=== PATIENT | male | born 1950 | race Caucasian/White ===

== ENCOUNTER 2019-03-02 20:49 | Inpatient (IN) ==
--- NOTE | 2019-03-02 21:47 | DI ---
Exam: Single view of the chest. Comparison: None available. Reason for exam: Short of breath. FINDINGS: Patchy airspace opacities are seen in the lung bases. No pneumothorax, pleural effusion, or focal consolidation. Impression: Mild basilar atelectasis/pneumonia.
--- NOTE | 2019-03-02 21:51 | CT ---
EXAM: CT head without contrast. HISTORY: Presyncope. PROCEDURE: Contiguous axial CT images of the head without contrast with coronal and sagittal reforma ts. FINDINGS: There is diffuse cerebral atrophy. The ventricles and basal cisterns are normal in size an d configuration. No evidence of mass or midline shift. No intracranial hemorrhage or evidence of la rge vessel infarct. No extra-axial fluid collection. There are chronic small vessel ischemic change s in the white matter. The paranasal sinuses and right mastoid air cells are normal in appearance. There is partial opacification of the left mastoid air cells. Impression: No intracranial hemorrhage or evidence of large vessel infarct. Chronic small vessel ischemic changes. Diffuse cerebral atrophy. Left mastoiditis.
--- NOTE | 2019-03-02 21:54 | ED.PDOC ---
General ED Provider: Dr. STARLA RUIZ MD Chief Complaint: Dizziness Stated Complaint: The patient presented to the ER with a 2 day history of worsening shortness of breath. He denies any chest pain. He also complains of some pre-syncope and dizziness. No syncope. Denies any GI upset or diaphoresis. No fever or chills. No chemo nose or congestion. He does complain of cough. states his legs are swollen. The patient has a history of COPD and CHF. Time Seen by Physician: 21:00 Mode of Arrival: Walk-In Information Source: Patient Exam Limitations: No limitations Nursing and Triage Documentation Reviewed and Agree: Yes Does patient meet sepsis criteria?: No System Inflammatory Response Syndrome: Not Applicable Sepsis Protocol: For patient's 13 years and over: Temp is 96.8 and below OR 101 and greater Pulse >90 BPM Resp >20/minute Acutely Altered Mental Status Are patient's symptoms suggestive of a new infection, such as: -Pneumonia -Skin, Soft Tissue -Endocarditis -UTI -Bone, Joint Infection -Implantable Device -Acute Abdominal Infection -Wound Infection -Meningitis -Blood Stream Catheter Infection -Unknown Respiratory Complaint Exam Shortness of Air Complaint/Exam Symptoms Are: Still present Timing: Constant Initial Severity: Moderate Current Severity: Moderate Character: Reports Dyspnea at rest and Dyspnea on exertion Aggravating: Reports None Alleviating: Reports None Associated Signs and Symptoms: Reports Cough, Dizziness and Edema; Denies Wheezing, Chest pain with cough, Chest pain, Fever, Chills, Diaphoresis, Nasal congestion, Calf pain, Calf swelling, Rapid breathing, Labored breathing and Decreased intake Related History: Reports Similar episode History of Healthcare-Acquired Pneumonia: No Pulmonary Embolism Risk Factors: Reports Recent travel and DVT Differential Diagnoses: CHF, Pulmonary Edema, COPD Exacerbation, [place], Pneumonia, Pulmonary Embolism and URI Review of Systems Review Of Systems Constitutional: Reports No symptoms Eyes: Reports No symptoms Ears, Nose, Mouth, Throat: Reports No symptoms Respiratory: Reports No symptoms Cardiac: Reports No symptoms GI: Reports No symptoms : Reports No symptoms Musculoskeletal: Reports No symptoms Skin: Reports No symptoms Neurological: Reports No symptoms Endocrine: Reports No symptoms Hematologic/Lymphatic: Reports No symptoms All Other Systems: Reviewed and Negative Physical Exam Physical Exam Appearance: Well-appearing, No pain distress and Well-nourished Ill-appearing: None Pain Distress: None Eyes: ZEE, EOMI and Conjunctiva clear ENT: Ears normal, Nose normal and Oropharynx normal Neck: Supple Respiratory: Airway patent, Breath sounds clear, Breath sounds equal and Respirations nonlabored Cardiovascular: RRR, Pulses normal, No rub and No murmur GI/: Soft, Nontender, No masses, Bowel sounds normal and No Organomegaly Musculoskeletal: Normal strength, ROM intact, No edema, No calf tenderness and Edema (2+ symetric pitting edema to the knee) Skin: Warm, Dry and Normal color Neurological: Sensation intact, Motor intact, Reflexes intact, Cranial nerves intact, Alert and Oriented Psychiatric: Affect appropriate and Mood appropriate Re-Evaluation Re-Evaluation Time of Re-Evaluation: 00:00 Status: Improved Vital Signs Stable: Yes Appearance: NAD Lungs: Clear Skin: Warm and Dry Neuro: Alert and Oriented X3 CV: RRR Critical Care Note Critical Care Note Total Time (mins): 0 Comments: D dimer elevated. CT chest showed no PE or consolidation. The patient received a 250ml NS bolus after the CT to flush IV contrast. Work up significant for edema, weight gain and elevated BNP. No mastoid tenderness on exam. Admit for IV lasix diuresis. I discussed the case with Dr Blackwood who graciously agreed to accept the patient to his service. Course Course Hematology/Chemistry: 03/02/19 21:00 03/02/19 21:00 Orders, Labs, Meds: Lab Review 03/02/19 03/02/19 03/02/19 21:00 21:00 21:00 WBC 9.76 RBC 4.88 Hgb 15.9 Hct 47.0 MCV 96.3 H MCH 32.6 H MCHC 33.8 RDW Coeff of Brodie 13.3 Plt Count 279 Immature Gran % (Auto) 0.6 Neut % (Auto) 68.8 Lymph % (Auto) 18.8 Bledsoe % (Auto) 9.1 Eos % (Auto) 2.5 Baso % (Auto) 0.2 Immature Gran # (Auto) 0.1 Neut # (Auto) 6.7 Lymph # (Auto) 1.8 Bledsoe # (Auto) 0.9 Eos # (Auto) 0.2 Baso # (Auto) 0.0 PT 9.5 INR 0.97 APTT 34.6 D-Dimer (Manual) Puncture Site O2 Saturation ABG pH ABG pCO2 ABG pO2 ABG HCO3 ABG Total CO2 ABG Base Excess Yonathan Test FiO2 % Sodium 140.0 Potassium 3.78 Chloride 96.3 L Carbon Dioxide 35.4 H Anion Gap 12.08 BUN 24.3 H Creatinine 1.58 H Estimated GFR (MDRD) 44.00 BUN/Creatinine Ratio 15.37 Glucose 114.0 H Lactic Acid Calcium 9.73 Magnesium 1.92 Total Bilirubin 0.71 AST 25.3 ALT 17.9 Alkaline Phosphatase 82.6 Troponin I 0.038 NT-Pro-B Natriuret Pep 1380.000 H Total Protein 8.15 Albumin 4.46 Globulin 3.69 Albumin/Globulin Ratio 1.20 03/02/19 03/02/19 03/02/19 21:00 21:03 21:30 WBC RBC Hgb Hct MCV MCH MCHC RDW Coeff of Brodie Plt Count Immature Gran % (Auto) Neut % (Auto) Lymph % (Auto) Bledsoe % (Auto) Eos % (Auto) Baso % (Auto) Immature Gran # (Auto) Neut # (Auto) Lymph # (Auto) Bledsoe # (Auto) Eos # (Auto) Baso # (Auto) PT INR APTT D-Dimer (Manual) 991.98 Puncture Site Rb O2 Saturation 96.0 ABG pH 7.411 ABG pCO2 44.1 ABG pO2 81.0 L ABG HCO3 28 H ABG Total CO2 29 H ABG Base Excess 3 H Yonathan Test + FiO2 % 21.0 Sodium Potassium Chloride Carbon Dioxide Anion Gap BUN Creatinine Estimated GFR (MDRD) BUN/Creatinine Ratio Glucose Lactic Acid 1.12 Calcium Magnesium Total Bilirubin AST ALT Alkaline Phosphatase Troponin I NT-Pro-B Natriuret Pep Total Protein Albumin Globulin Albumin/Globulin Ratio Orders Category Date Time Status ADMIT PATIENT INPATIENT .TO [facility] (MONITORED BED) ADMISSION 03/02/19 2 3:57 Ordered ABG DRAW REQUEST Stat CARDIO 03/02/19 21:05 Completed EKG-(ED ONLY) Stat CARDIO 03/02/19 21:03 Completed ACTIVITY .Up ad Lupe CARE 03/02/19 23:57 Ordered CATHETER INSERTION AND CARE Q8HR CARE 03/02/19 23:57 Ordered INTAKE & OUTPUT Q8HR CARE 03/02/19 23:57 Ordered NPO REMINDER: IMAGING ONCE CARE 03/02/19 22:19 Completed REMINDER: Ask MD to d/c garner DAILY CARE 03/03/19 00:00 Ordered TELEMETRY MONITORING TELE CARE 03/03/19 00:02 Ordered VITAL SIGNS Q8HR CARE 03/02/19 23:57 Ordered VTE PREVENTION .SCD 24 Hours CARE 03/02/19 23:57 Ordered CARDIAC DIET DIETARY 03/02/19 Breakfast Ordered ABG Stat LAB 03/02/19 21:03 Completed CBC W/ AUTO DIFF DAILY@0600 LAB 03/03/19 06:00 Ordered CBC W/ AUTO DIFF DAILY@0600 LAB 03/04/19 06:00 Ordered CBC W/ AUTO DIFF Stat LAB 03/02/19 21:00 Completed COMPREHENSIVE METABOLIC PANEL DAILY@0600 LAB 03/03/19 06:00 Ordered COMPREHENSIVE METABOLIC PANEL DAILY@0600 LAB 03/04/19 06:00 Ordered COMPREHENSIVE METABOLIC PANEL Stat LAB 03/02/19 21:00 Completed D-DIMER Stat LAB 03/02/19 21:00 Completed LACTIC ACID Stat LAB 03/02/19 21:30 Completed MAGNESIUM Stat LAB 03/02/19 21:00 Completed NT-PROBNP DAILY@0600 LAB 03/02/19 06:00 Ordered NT-PROBNP Stat LAB 03/02/19 21:00 Completed PARTIAL THROMBOPLASTIN TIME Stat LAB 03/02/19 21:00 Completed PROCALCITONIN Urgent LAB 03/02/19 Ordered PT WITH INR Stat LAB 03/02/19 21:00 Completed TROPONIN I Stat LAB 03/02/19 21:00 Completed URINALYSIS C & S IF INDICATED Stat LAB 03/02/19 21:03 Uncollected Amlodipine Besylate [Norvasc] MEDS 03/03/19 09:00 Ordered 10 mg PO DAILY Carvedilol [Coreg] MEDS 03/03/19 09:00 Ordered 25 mg PO BID Dabigatran Etexilate Mesylate [Pradaxa] MEDS 03/03/19 09:00 Ordered 150 mg PO BID Ergocalciferol (Vitamin D2) [Drisdol] MEDS 03/03/19 09:00 Ordered 50,000 unit PO WEEKLY Furosemide [Lasix] MEDS 03/02/19 23:45 Ordered 40 mg IVP BID Hydrocodone Bit/Acetaminophen [[place] 10-325] MEDS 03/03/19 00:03 Ordered 1 tab PO Q6H PRN Levothyroxine Sodium [Synthroid] MEDS 03/03/19 09:00 Ordered 50 mcg PO DAILY Lisinopril [Zestril] MEDS 03/03/19 09:00 Ordered 40 mg PO DAILY Sodium Chloride 0.9% [Sodium Chloride] 1,000 ml MEDS 03/02/19 23:09 Active IV BOLUS Spironolactone [Aldactone] MEDS 03/03/19 09:00 Ordered 25 mg PO DAILY RESUSCITATION STATUS Routine OTHERS 03/02/19 23:57 Ordered CHEST, 1V AP ONLY Stat RADS 03/02/19 21:[address] CHEST PE PROTOCOL Stat RADS 03/02/19 22:[address] HEAD W/O CONTRAST Stat RADS 03/02/19 21:06 Completed Medications Generic Name Dose Route Start Last Admin Trade Name Freq PRN Reason Stop Dose Admin Furosemide 40 mg 03/02/19 23:45 Lasix IVP BID TAYA Sodium Chloride 1,000 mls @ 1,000 mls/hr 03/02/19 23:09 03/02/19 23:20 Sodium Chloride IV 03/03/19 00:08 1,000 mls/hr BOLUS STA Administration Vital Signs: Temp Pulse Resp BP Pulse Ox 03/02/19 20:52 99 F 64 26 H 190/90 H 98 Discharge Plan Discharge Patient Disposition: ADMITTED INPATIENT Discharge Problem: Acute exacerbation of CHF (congestive heart failure) Qualifiers: Heart failure type: unspecified Qualified Code(s): I50.9 - Heart failure, unspecified ED Provider: STARLA RUIZ Condition: Good
[2019-03-02] MEDS ORDERED: SODIUM CHLORIDE 1,000 ML IV STA (23:09)
--- NOTE | 2019-03-02 23:25 | CT ---
EXAM: CT pulmonary angiogram. HISTORY: Shortness of breath. Elevated D-dimer. PROCEDURE: After the intravenous injection of contrast a CT pulmonary angiogram was performed with c ontiguous axial CT images of the chest with multiplanar reformats, MIP images and 3-D reformats. FINDINGS: There is normal enhancement of the pulmonary arteries with no evidence of pulmonary embolis m. The heart is enlarged. There is aneurysmal dilatation of the ascending aorta which measures 4.3 cm in diameter with no evidence of aneurysm leak. There are coronary artery calcifications. There i s minimal bilateral atelectasis. There are degenerative changes in the spine. Impression: No evidence of pulmonary embolism. Minimal bilateral atelectasis. Aortic aneurysm as described. Atherosclerotic vascular disease. Cardiomegaly.
[2019-03-03] MEDS: LASIX IVP SCH ×3 (00:25→20:28)
[2019-03-03] MEDS: NORCO 10-325 PO PRN ×2 (01:07→09:48)
[2019-03-03 01:35] VITALS: BMI 43.6
[2019-03-03] MEDS: SYNTHROID PO SCH (05:42)
[2019-03-03] MEDS ORDERED: COREG PO SCH (09:00)
[2019-03-03] MEDS ORDERED: ZESTRIL PO SCH (09:00)
[2019-03-03] MEDS ORDERED: NORVASC PO SCH (09:00)
[2019-03-03] MEDS: ANTIVERT PO SCH ×3 (09:47→20:24)
[2019-03-03] MEDS: K-DUR PO SCH ×3 (09:47→17:26)
[2019-03-03] MEDS: ALDACTONE PO SCH (09:47)
[2019-03-03] MEDS: ZOFRAN 4 MG/2 ML IVP PRN ×2 (09:48→15:18)
[2019-03-03] MEDS: PRADAXA PO SCH ×2 (09:49→20:23)
--- NOTE | 2019-03-03 10:10 | PCM.CONS ---
CONSULTING PROVIDER: Dr. HERBERT ROBERTS ATTENDING PROVIDER: Dr. Bethany ALFARO DATE OF SERVICE: 03/03/19 SUBJECTIVE: This 68 year old /WHITE M was hospitalized 03/03/19. The patient was seen on consultation for CHF exacerbation. Still has some dizziness with nausea likely vestibular dysfunction. CT scan of the head and chest don't show any acute findings. REVIEW OF SYSTEMS: CONSTITUTIONAL: No night sweats. No fatigue, malaise, lethargy. No fever or chills. HEENT: Eyes: No visual changes. No eye pain. No eye discharge. ENT: No runny nose. No epistaxis. No sinus pain. No odynophagia. No congestion. RESPIRATORY: No cough, no congestion. No hemoptysis. No shortness of breath. CARDIOVASCULAR: No angina symptoms. No CHF symptoms. No atypical chest pain for CAD. No palpitations. No orthopnea. GASTROINTESTINAL: No abdominal pain. Nausea. No diarrhea or constipation. No hematemesis. No hematochezia. GENITOURINARY: No urgency. No frequency. No dysuria. No hematuria. No obstructive symptoms. No discharge. No pain. No significant abnormal bleeding. MUSCULOSKELETAL: No musculoskeletal pain; no joint swelling. NEUROLOGICAL: Awake, alert, oriented to time, place and person. No headache. No neck pain. No syncope. No seizures. Dizziness. PSYCHIATRIC: Not anxious. No depression. No suicidal thoughts. No homicidal thoughts. SKIN: No rash. No lesions. No wounds. ENDOCRINE: No unexplained weight loss. No weight gain. HEMATOLOGIC/LYMPHATIC: No anemia. No purpura. No petechiae. No prolonged or excessive bleeding. No palpable lymph nodes. PHYSICAL EXAMINATION: GENERAL: The patient is awake, alert and oriented,sitting in bed in no distress. The patient is morbidly obese. VITAL SIGNS: Temperature 98.2 F, Pulse 67, Respiratory Rate 20, BP 148/88, Pulse Ox 95% HEENT: Head normocephalic, atraumatic. Eyes: Extraocular muscles are intact. Pupils are equal, round and reactive to light and accommodation. Ears: No lesions. Nose appeared normal. Throat: No exudate or erythema. NECK: Supple. No JVD, no carotid bruit. No lymphadenopathy or thyromegaly. LUNGS: Decreased breath sounds. Clear to auscultation. Percussion note normal. Chest symmetrical. HEART: S1, S2, no S3. No murmurs. No cyanosis or clubbing. No ascites. Pulses: Dorsalis pedis and posterior tibial pulses +1 to +2 both sides. ABDOMEN: Soft. Non-tender. Bowel sounds active. No CVA tenderness. No mass felt. EXTREMITIES: Both legs has pigmented skin with dermatitis which is stasis dermatitis. Full range of motion of all extremities, equal. NEUROLOGIC: No focal deficit. Cranial nerves II through XII are grossly intact. No headache, no double vision or headache. SKIN: Warm and dry. Intact. Turgor-normal. LYMPHATIC: No palpable lymph nodes/no lymphedema. MUSCULOSKELETAL: Normal joints with no swelling. Muscle tone is normal. LAB REVIEW: 03/03/19 04:57 03/03/19 04:57 03/03/19 04:57: Sodium 139.0, Potassium 3.28 L, Chloride 96.4 L, Carbon Dioxide 36.2 H, Anion Gap 9.68, BUN 24.0 H, Creatinine 1.49 H, Estimated GFR (MDRD) 47.00, BUN/Creatinine Ratio 16.10, Glucose 146.1 H, Calcium 8.95, Total Bilirubin 0.78, AST 19.8, ALT 15.7, Alkaline Phosphatase 65.9, NT-Pro-B Natriuret Pep 1030.000 H, Total Protein 6.74, Albumin 3.78, Globulin 2.96, Albumin/Globulin Ratio 1.27 03/03/19 04:57: WBC 8.20, RBC 4.63 L, Hgb 14.8, Hct 44.2, MCV 95.5 H, MCH 32.0 H , MCHC 33.5, RDW Coeff of Brodie 13.3, Plt Count 258, Immature Gran % (Auto) 0.4, Neut % (Auto) 62.9, Lymph % (Auto) 23.5, Person % (Auto) 10.1 H, Eos % (Auto) 2.7, Baso % (Auto) 0.4, Immature Gran # (Auto) 0.0, Neut # (Auto) 5.2, Lymph # (Auto) 1.9, Person # (Auto) 0.8, Eos # (Auto) 0.2, Baso # (Auto) 0.0 03/03/19 00:40: Urine Color Yellow, Urine Clarity Clear, Urine pH 5.0, Ur Specific Avalon 1.015, Urine Protein Negative, Urine Glucose (UA) Negative, Urine Ketones Negative, Urine Blood Negative, Urine Nitrite Negative, Urine B ilirubin Negative, Urine Urobilinogen 0.2, Ur Leukocyte Esterase Negative 03/03/19 00:15: Hemoglobin A1c 6.19 H 03/03/19 00:15: 25-OH Vitamin D Total 29.4 L 03/03/19 00:15: TSH 4.260 03/02/19 21:30: Lactic Acid 1.12 03/02/19 21:03: Puncture Site Rb, O2 Saturation 96.0, ABG pH 7.411, ABG pCO2 44.1, ABG pO2 81.0 L, ABG HCO3 28 H, ABG Total CO2 29 H, ABG Base Excess 3 H, Yonathan Test +, FiO2 % 21.0 03/02/19 21:00: Procalcitonin < 0.05 03/02/19 21:00: D-Dimer (Manual) 991.98 03/02/19 21:00: Sodium 140.0, Potassium 3.78, Chloride 96.3 L, Carbon Dioxide 35.4 H, Anion Gap 12.08, BUN 24.3 H, Creatinine 1.58 H, Estimated GFR (MDRD) 44.00, BUN/Creatinine Ratio 15.37, Glucose 114.0 H, Calcium 9.73, Magnesium 1.92, Total Bilirubin 0.71, AST 25.3, ALT 17.9, Alkaline Phosphatase 82.6, Troponin I 0.038, NT-Pro-B Natriuret Pep 1380.000 H, Total Protein 8.15, Albumin 4.46, Globulin 3.69, Albumin/Globulin Ratio 1.20 03/02/19 21:00: PT 9.5, INR 0.97, APTT 34.6 03/02/19 21:00: WBC 9.76, RBC 4.88, Hgb 15.9, Hct 47.0, MCV 96.3 H, MCH 32.6 H, MCHC 33.8, RDW Coeff of Brodie 13.3, Plt Count 279, Immature Gran % (Auto) 0.6, Neut % (Auto) 68.8, Lymph % (Auto) 18.8, Person % (Auto) 9.1, Eos % (Auto) 2.5, Baso % (Auto) 0.2, Immature Gran # (Auto) 0.1, Neut # (Auto) 6.7, Lymph # (Auto) 1.8, Person # (Auto) 0.9, Eos # (Auto) 0.2, Baso # (Auto) 0.0 ASSESSMENT: 1. Dizziness with nausea likely vestibular dysfunction 2. History of atrial fibrillation started after right total knee replacement in 2014 3. History of pulmonary embolism Please see below. RECOMMENDATIONS/PLAN: 1. Echo 2. Carotid scan 3. Continue the same medications. Plan and coordination of the patient's care discussed in the presence of Piece Jobber and Nurse. CONDITION: Stable SCRIBED BY: Indy SETHI scribed while in presence of service performed by Dr. HERBERT ROBERTS on 03/03/19 ([id number])
[2019-03-03] MEDS ORDERED: NEXIUM IV IVP STA (14:17)
--- NOTE | 2019-03-03 15:15 | US ---
EXAM: Bilateral carotid artery Doppler History: Dizziness. Technique: Multiple sonographic images through the bilateral internal carotid arteries were obtained . Color duplex Doppler was used to interrogate vascular flow. Findings: The right ICA peak systolic velocity is within normal limits measuring 82 cm/sec. The right ICA/cca PSV ratio is normal at 1.8. The right vertebral artery is patent and demonstrates antegrade flow. G ray scale images demonstrate mild plaque buildup within the right internal carotid artery. The left ICA peak systolic velocity is within normal limits measuring 61 cm/sec. The left ICA/cca PS V ratio is normal at 1.5. The left vertebral artery was not seen. Connell scale images demonstrate mil d plaque buildup within the left internal carotid artery. Impression: 1. No significant hemodynamic stenosis of the bilateral internal carotid arteries. 2. Nonvisualization of the left vertebral artery
[2019-03-03] MEDS: COREG PO SCH (17:26)
[2019-03-04] MEDS: SYNTHROID PO SCH (05:31)
[2019-03-04] MEDS ORDERED: DECADRON 4 MG/ML SDV IM STA (08:10)
[2019-03-04] MEDS ORDERED: ZOFRAN TAB PO PRN (08:25)
[2019-03-04] MEDS: PRADAXA PO SCH ×2 (08:35→20:56)
[2019-03-04] MEDS: COREG PO SCH ×2 (08:36→17:26)
[2019-03-04] MEDS: ANTIVERT PO SCH ×3 (08:36→20:58)
[2019-03-04] MEDS: K-DUR PO SCH ×3 (08:36→17:26)
[2019-03-04] MEDS: ALDACTONE PO SCH (08:36)
[2019-03-04] MEDS: NORVASC PO SCH (08:37)
[2019-03-04] MEDS: ZESTRIL PO SCH (08:37)
--- NOTE | 2019-03-04 09:36 | PN ---
DATE OF SERVICE: 03/03/19 SUBJECTIVE: The patient was doing better and stable. He lost 7 lbs since admission. I did instruct the nurse last night to put the weight as soon as he gets to bed. The patient had echocardiogram done by Dr. Majano and told me that his ejection fraction is preserved. I do not have the written report. The patient's WBC stayed within normal limits. The MCV and MCH remained elevated. The RBC is slightly below normal but hemoglobin is 14.8 down about 1 point from yesterday and hematocrit down to 44 from 47. Potassium slightly lower now 3.58 from 3.78 probably because of the Lasix. He will be given a small amount of potassium supplementation. He is taking Lisinopril as well as Aldactone. C02 is slightly higher 36.2 from 35.4. This patient is encouraged to take deep breaths, three breaths at the time every hour. BUN slightly below from yesterday 24 from 24.3 and creatinine 1.49 from 1.58. EGFR is 47 from 44 yesterday. Blood sugar 146, hemoglobin A1C 6.19, NT-Pro-BNP 1,030 from 1,380. 25-OH Vitamin D is 29.4 ng/ml. TSH 4.260. The skin on the foot is dry. Lungs still have coarse breath sounds. No rales or wheezing otherwise. Heart is audible and slightly irregular. Abdomen protuberant. ASSESSMENT: 1. ACUTE HEART FAILURE SUPERIMPOSED ON CHRONIC. 2. IN SPITE INSULIN LEVEL, I DO THINK THE PATIENT MAY HAVE AN INSULIN RESISTANT SYNDROME. MTDD
--- NOTE | 2019-03-04 11:15 | HP ---
DATE OF SERVICE: 03/03/19 CHIEF COMPLAINT: Shortness of breath and dizziness. SOURCE OF HISTORY: The patient as well as notes from the emergency room. HISTORY OF PRESENT ILLNESS: I did come and see the patient about 12:30 in the morning of 03/03/19. The patient had been driving from [facility][1] coming to [place]. He planned to [place]. He told me from [place] he was going to [place]. He had been experiencing some shortness sometime maybe a month. He goes to the [facility] and he did complain about the fact that he could not see the doctor at the [facility] quickly. He mentioned that there is one doctor for 5,000 patient's. His shortness of breath has worsened in the last two days. Dizziness is not vertigo. The patient had not had a syncopal episode with this dizziness. The patient had a work up at the emergency room plus examination. The patient had CTA chest because of the history of pulmonary emboli and shortness of breath. There is no pulmonary embolism, minimal bilateral atelectasis, aortic aneurysm 4.3cm thoracic, Atherosclerotic vascular disease with vascular calcifications of the coronary arteries and cardiomegaly. Bilateral carotid Doppler studies showed no significant hemodynamic stenosis. Nonvisualization of the left vertebral artery. Head CT showed no intracranial hemorrhage or evidence of large vessel infarct. Chest x-ray shows mild basilar atelectasis or pneumonia not shown on CT. Normal WBC. Normal RBC, hgb and hct in the emergency. Elevated MCV and MCH 96.3 and 32.6 respectively. Plt count normal 279,000 differential is unremarkable. Electrolytes are unremarkable. Chloride 96.3, Co2 35.4, Iron gap normal 12.08. BUN elevated 24.3, creatinine 1.58, EGFR 44. Blood sugar 114. NT PRO BNP 1,380, Troponin normal 0.038, procalcitonin less than 0.05. Urine is unremarkable. Specific gravity 1.015. PT 9.5, INR 0.97, APTT 34.6 normal, D- dimer 991.98, elevated > 500ng/ml. The patient was admitted because of leg edema shortness of breath and elevated PROBNP. PAST MEDICAL HISTORY: The patient had been diagnosis with atrial fibrillation on Pradaxa 150mg twice a day Hypothyroidism Arthritis Vitamin D deficiency Sleep apnea Pulmonary embolism Heart disease/Congestive heart failure Hypertension PAST SURGICAL HISTORY: None FAMILY HISTORY: Mother had hypothyroidism in the past with chronic obstructive lung disease. Father had myocardial infarction plus heart disease Sister was diabetes mellitus Other sister had heart disease SOCIAL HISTORY: The patient is and never did smoke in his life and no alcoholic beverages. MEDICATIONS: Amlodipine 10mg daily Carvedilol 25mg PO twice a day Pradaxa 150mg twice a day Vitamin D 2 50,000 international units weekly Hydrocodone/APAP 10-325 1 tablet Q 6 hours PRN for pain I do not have the strength for that medication Levothyroxine 50mcg PO daily Lisinopril 40mg daily Aldactone 1 tablet daily 25mg ALLERGIES: No known drug allergies. REVIEW OF SYSTEMS: CONSTITUTIONAL: The patient is alert and oriented and answering questions. He has movement of all extremities. Denies any fever, chills, headaches or visual disturbances. 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 Some dizziness but no syncopal episode or seizures. VISUAL: Denies any blurred vision, double vision or transient loss of vision. AUDITORY: Hearing is decreased. Denies any pain or drainage or ringing. RESPIRATORY: The patient has shortness of breath with some cough. No history of hemoptysis. The sensation of the shortness of shortness of breath had been for about a month or more but had worsened in the last two days. CARDIOVASCULAR: Denies any chest pain or chest tightness. He does have some shortness of breath on exertion. No diaphoresis. : The patient denies any dysuria. GI: The patient has some nausea but no anorexia. No vomiting. No abdominal pain or change in bowel habits and no blood in the stool. INTEGUMENT: Denies any rash or pruritus. ENDOCRINE: No polyuria or polydipsia. HEMATOLOGY: No history of prolonged bleeding or spontaneous bleeding. PSYCHIATRIC: Affect appears to be normal. The patient's cooperative. PHYSICAL EXAMINATION: GENERAL: 68 year old male admitted to the hospital because of shortness of breath and cough and bilateral leg edema and weight gain. He has a history of congestive heart failure in the past. HEAD: Unremarkable. Scalp has no active dermatitis. FACE: Symmetrical and equal with no facial weakness and no tenderness to palpation under pressure in the frontal and maxillary sinus areas. EYES: Pupils are equal and reactive to light about 3mm in size. THROAT: Unremarkable. NECK: No masses and no bruit. No rigidity. CHEST: Symmetrical and equal and barrel in shape. LUNGS: Breath sounds are heard in both sides, course but no obvious rales and no wheezing HEART: Audible and slightly irregular and not tachycardiac. No murmur ABDOMEN: Protuberant. Pendulous soft with no significant tenderness. No masses. No bruit. Bowel sounds are active. EXTERNAL GENITALIA: Not examined. RECTAL: No performed. LOWER EXTREMITIES: Bilateral leg edema more or less ankle and foot. The skin is dry and scaly. No pedal pulses. UPPER EXTREMITIES: Symmetrical and equal ASSESSMENT: 1. Heart failure by history undetermined whether reduced ejection fraction or preserve ejection fraction 2. Atrial fibrillation on Pradaxa 3. Hypothyroidism on replacement, Levothyroxine 50mcg 4. Hypertension on Lisinopril and Aldactone 5. Elevated BMI 43.6 6. Vitamin D deficiency by history 7. Peripheral arterial disease 8. Bilateral leg edema probably mixed etiology PLAN: 1. Continue Lasix 40mg intervenously given at the emergency room. I told the nurse to give the medication before being transferred to the floor. 2. Continue all the home medications 3. Refer to Cardiology, Dr. Majano for further evaluation, studies and treatment PROGNOSIS: Guarded TIME SPENT: GREATER THAN 65 MINUTES MTDD
--- NOTE | 2019-03-04 14:16 | ECHO2D ---
Date of Exam: 03/03/19 Ordering Physician: DR. LORY ALFARO Room #: 122 Reason for Echo: ATRIAL FIBRILLATION M-Mode Normal Adult Results LV Dimensions Normal Adult Results AoV Opening excursions >1.6 >1.6 LVEDD-base- 3.5-5.8 5.7 Ao root dimensions 2.0-3.7 3.9 LVESD-base- 3.1-4.6 L. Atrium dimensions 1.9-3.8 6.2 Post. Wall thickness 0.8-1.1 1.6 IV septum (thickness) 0.7-1.2 1.6 Post. Wall excursion 0.72-1.3 0.6 Septal motion 0.6 Systolic motion R. Ventricular cavity 1.5-2.0 NORMAL LVEF 60% 45-50% Paradoxical septal wall motion NORMAL 2-D : MARKEDLY ENLARGED LEFT ATRIAL CAVITY, BORDERLINE LEFT VENTRICLE CAVITY ENLARGEMENT--HYPOKINETIC LEFT VENTRICLE --NORMAL VALVES--NO EFFUSION, NO THROMBUS M-MODE: MV: NORMAL AV: NORMAL TV: NORMAL PV: CHAMBER SIZE: ENLARGED LEFT ATRIAL CAVITY/ BORDERLINE LEFT VENTRICLE CAVITY WALL MOTION: HYPOKINETIC LEFT VENTRICLE PERICARDIUM: NORMAL INTERPRETATION: 1. DIFFICULT STUDY--BODY HABITUS BMI GREATER THAN 50 2. LEFT VENTRICLE HYPERTROPHY (MODERATE) WITH STIFF LEFT VENTRICLE 3. MILDLY HYPOKINETIC LEFT VENTRICLE WITH EJECTION FRACTION 45 TO 50% 4. MARKEDLY ENLARGED LEFT ATRIA CAVITY 5. BORDERLINE LEFT VENTRICLE CAVITY ENLARGEMENT. MTDD
[2019-03-05] MEDS: SYNTHROID PO SCH (06:05)
[2019-03-05] MEDS: ALDACTONE PO SCH (09:02)
[2019-03-05] MEDS: COREG PO SCH ×2 (09:03→17:38)
[2019-03-05] MEDS: ANTIVERT PO SCH ×3 (09:03→20:16)
[2019-03-05] MEDS: NORVASC PO SCH (09:03)
[2019-03-05] MEDS: PRADAXA PO SCH ×2 (09:05→20:21)
[2019-03-05] MEDS: ZESTRIL PO SCH (09:05)
[2019-03-05] MEDS: K-DUR PO SCH ×3 (09:05→17:38)
--- NOTE | 2019-03-05 11:41 | DI ---
EXAM: Chest two views HISTORY: Shortness of breath FINDINGS: Compared to 03/02/2019. Cardiomegaly and atherosclerosis are again noted. No consolidate d pneumonia or definite central vascular congestion. There is no visible pleural fluid or pneumothor ax. IMPRESSION: 1. No acute cardiopulmonary process.
[2019-03-06] MEDS: SYNTHROID PO SCH (05:46)
[2019-03-06] MEDS: PRADAXA PO SCH (09:32)
[2019-03-06] MEDS: ANTIVERT PO SCH ×2 (09:32→14:03)
[2019-03-06] MEDS: NORVASC PO SCH (09:33)
[2019-03-06] MEDS: ZESTRIL PO SCH (09:33)
[2019-03-06] MEDS: COREG PO SCH ×2 (09:33→17:00)
[2019-03-06] MEDS: K-DUR PO SCH ×3 (09:33→17:00)
[2019-03-06] MEDS: ALDACTONE PO SCH (09:33)
[2019-03-06 13:58] VITALS: BP 116/70; TEMP 97.8
--- NOTE | 2019-03-08 08:58 | CONS ---
DATE OF SERVICE: 03/05/19 CONSULT FOLLOWUP SUBJECTIVE: 68 year old white male hospitalized with possibility of CHF. Main problem was dizziness. The patient's dizziness is practically under control. He doesn't have any symptoms of CHF. REVIEW OF SYSTEMS: CONSTITUTIONAL: No night sweats. No fatigue, malaise, lethargy. No fever or chills. HEENT: Eyes: No visual changes. No eye pain. No eye discharge. ENT: No runny nose. No epistaxis. No sinus pain. No sore throat. No odynophagia. No ear pain. No congestion. RESPIRATORY: No cough, no congestion. No hemoptysis. CARDIOVASCULAR: No angina symptoms. No CHF symptoms. No atypical chest pain for CAD. No palpitations. No shortness of breath. GASTROINTESTINAL: No abdominal pain. No nausea or vomiting. No diarrhea or constipation. No hematemesis. No hematochezia. GENITOURINARY: No urgency. No frequency. No dysuria. No hematuria. No obstructive symptoms. No discharge. No pain. No significant abnormal bleeding. MUSCULOSKELETAL: No musculoskeletal pain. No joint swelling. No arthritis. NEUROLOGICAL: No headache. No neck pain. No syncope. No seizures. No dizziness. PSYCHIATRIC: Not anxious. No depression. No suicidal thoughts. No homicidal thoughts. SKIN: No rash. No lesions. No wounds. ENDOCRINE: No unexplained weight loss. No weight gain. HEMATOLOGIC/LYMPHATIC: No anemia. No purpura. No petechiae. No prolonged or excessive bleeding. No palpable lymph nodes. PHYSICAL EXAMINATION: GENERAL: The patient is oriented to time, place and person. VITAL SIGNS: Temperature 98, pulse 70, respiratory rate 15, blood pressure 130/80 and pulse ox 95% on room air. HEENT: Head normocephalic, atraumatic. Eyes: Extraocular muscles are intact. Pupils are equal, round and reactive to light and accommodation. Ears: No lesions. Nose appeared normal. Throat: No exudate or erythema. NECK: Supple. No JVD, no carotid bruit. No lymphadenopathy or thyromegaly. LUNGS: Decreased breath sounds but clear to auscultation. Percussion note normal. Chest symmetrical. HEART: S1, S2, no S3. No murmurs. No cyanosis or clubbing. No ascites. Pulses: Dorsalis pedis and posterior tibial pulses +1 to +2 bilaterally. ABDOMEN: Soft. Nontender. Bowel sounds active. No CVA tenderness. No mass felt. The patient's appetite is excellent. He eats a lot. No nausea. EXTREMITIES: No edema. Full range of motion of all extremities, equal. NEUROLOGIC: No focal deficit. Cranial nerves II through XII are grossly intact. No headache, no double vision or headache. Mild dizziness,persists throughout the day. SKIN: Not dry. Intact. Turgor - normal. LYMPHATIC: No palpable lymph nodes/no lymphedema. MUSCULOSKELETAL: Normal joints with no swelling. Muscle tone is normal. ASSESSMENT: 1. Dizziness seems to be vestibular dysfunction. No evidence of CHF at present time. Carotid scan and CT scan of the head no acute findings or medical findings. The patient is waiting for his to come and pick him up as he is a resident of [place] CONDITION: Stable. [facility]
[2019-03-08] MEDS ORDERED: DRISDOL PO SCH (09:00)
--- NOTE | 2019-03-08 09:08 | CONS ---
DATE OF SERVICE: 03/06/19 CONSULT FOLLOWUP SUBJECTIVE: 68 year old white male hospitalized with dizziness, lightheadedness. There was a possibility of CHF on admission. The patient doesn't have any CHF symptoms. REVIEW OF SYSTEMS: CONSTITUTIONAL: No night sweats. No fatigue, malaise, lethargy. No fever or chills. HEENT: Eyes: No visual changes. No eye pain. No eye discharge. ENT: No runny nose. No epistaxis. No sinus pain. No sore throat. No odynophagia. No ear pain. No congestion. RESPIRATORY: No cough, no congestion. No hemoptysis. CARDIOVASCULAR: No angina symptoms. No CHF symptoms. No atypical chest pain for CAD. No palpitations. No shortness of breath. GASTROINTESTINAL: No abdominal pain. No nausea or vomiting. No diarrhea or constipation. No hematemesis. No hematochezia. Appetite is good. GENITOURINARY: No urgency. No frequency. No dysuria. No hematuria. No obstructive symptoms. No discharge. No pain. No significant abnormal bleeding. MUSCULOSKELETAL: No musculoskeletal pain. No joint swelling. No arthritis. NEUROLOGICAL: No headache. No neck pain. No syncope. No seizures. Mild dizziness more with the head movement. PSYCHIATRIC: Not anxious. No depression. No suicidal thoughts. No homicidal thoughts. SKIN: No rash. No lesions. No wounds. ENDOCRINE: No unexplained weight loss. No weight gain. HEMATOLOGIC/LYMPHATIC: No anemia. No purpura. No petechiae. No prolonged or excessive bleeding. No palpable lymph nodes. PHYSICAL EXAMINATION: VITAL SIGNS: Temperature 98.6, pulse 60, respiratory rate 20, blood pressure 124/72 and pulse ox 95%. HEENT: Head normocephalic, atraumatic. Eyes: Extraocular muscles are intact. Pupils are equal, round and reactive to light and accommodation. Ears: No lesions. Nose appeared normal. Throat: No exudate or erythema. NECK: Supple. No JVD, no carotid bruit. No lymphadenopathy or thyromegaly. LUNGS: Decreased breath sounds. Clear to auscultation. Percussion note normal. Chest symmetrical. HEART: S1, S2, no S3. No murmurs. No cyanosis or clubbing. No ascites. Pulses: Dorsalis pedis and posterior tibial pulses +2 bilaterally. ABDOMEN: Soft. Nontender. Bowel sounds active. No CVA tenderness. No mass felt. EXTREMITIES: No edema. Full range of motion of all extremities, equal. NEUROLOGIC: No focal deficit. Cranial nerves II through XII are grossly intact. No headache, no double vision or headache. SKIN: Not dry. Intact. Turgor - normal. LYMPHATIC: No palpable lymph nodes/no lymphedema. MUSCULOSKELETAL: Normal joints with no swelling. Muscle tone is normal. LABS: Hgb 14, hct 42, WBC 7,900 normal differential, creatinine 1.5, BUN 36, potassium 4.9 ASSESSMENT: 1. Dizziness/ Lightheadedness likely vestibular dysfunction 3. Other cardiovascular and respiratory problems are stable. No evidence of DVT. Calf nontender. No evidence of pulmonary embolism which he had after his knee replacement. CONDITION: Stable. MTDD
--- NOTE | 2019-03-08 09:09 | CONS ---
The patient was seen a total of 4 times. This is a new patient so new consult. It should be billed as a new consult. CECILD
--- NOTE | 2019-03-08 09:49 | PN ---
DATE OF SERVICE: 03/04/19 SUBJECTIVE: The patient was admitted 03/03/19 and was in the emergency room on 03/02. The patient weighed 328 lbs on the day of admission and the patient was given Lasix and lost 7 lbs the next day on 03/03/19 to 321. He was weighed twice on that day and weighed 321 lbs. On 02/22/19 however the patient gained 2 lbs and is now to 323 lbs. The telemetry rhythm remained atrial fibrillation with bundle branch block, controlled rate. The rate was between 60 to 70. He was alert, oriented. He admitted to some dizziness at times when he rolls in bed, mostly toward the right. He served in the [employer] for 23 years. OBJECTIVE: Vital signs at 12 p.m. on 03/04/19 showed temperature 99.4 orally, pulse 66, blood pressure 99/52, respiratory rate 14, oxygen saturation 90 on room air. HEENT: Face is round. LUNGS: Clear to auscultation although diminished probably because of size. ABDOMEN: Protuberant, large, soft. Bowel sounds are active. HEART: Audible and irregular but not tachycardic. NECK: No masses. No bruit. LOWER EXTREMITIES: Dark discoloration secondary to venous insufficiency. Anterior tibial pulse are now palpable. The posterior tibials are not. The edema on the leg has regressed from admission. WBC remained normal. RBC 4.5 below normal. Hemoglobin 14.6, hematocrit 44. MCV elevated 97.8 and MCH 32.4, 94 and 31 are the upper normal respectively. This patient seemed to be deficient in the complex vitamin. The initial Pro-BNP was 1,0380 in the emergency room and BNP on 03/03 was 1,030. No BNP was done on 03/04. Blood sugar slightly elevated 117 and A1C was 6.19. BUN had been elevated since admission and 03/04 was higher 29.7 from 24.3 and the EGFR is 34. Electrolytes are normal except for slightly lower chloride 93.5. Liver panel normal. Procalcitonin admission was normal. CONDITION: Stable. He is still dizzy, no chest pain and no significant shortness of breath. The patient had an echocardiogram showing moderately decreased left ventricular ejection fraction 45 to 50, markedly enlarged left atrial cavity with enlarged left ventricular cavity. MTDD
--- NOTE | 2019-03-08 10:46 | PN ---
DATE OF SERVICE: 03/05/19 SUBJECTIVE: The patient is alert, still with some dizziness with rapid changes in position and also rolling in bed. He denies any chest pain or abdominal pain. No shortness of breath. The patient did weigh 323 lbs today. The patient is continued on his medications. The only medication added now is Antivert for the dizziness. The patient's dizziness is somewhat better but still persistent. OBJECTIVE: LUNGS: Clear to auscultation. HEART: Audible and slightly irregular, not tachycardic and somewhat distant probably because of size. ABDOMEN: Soft but again markedly protuberant because of the size. He was complaining of pain in the right groin. He had previous hernia repair. There is no inguinal protrusion. He lifted something and since then had pain. There is nothing coming through the subcutaneous ring on examination. He was advised to see the operating surgeon or who did the surgery. I had discussed with him about his Graves' disease history. I told him that he had Graves' disease and was given medication then was hypothyroid again, given a medication to correct the hypothyroid. I did ask him about the name of the medications but he could not remember. He denied having radiation treatment for the Graves' disease. He is taking his Levothyroxine. I thought this patient with Graves' disease should still be on a lower dose of Methimazole or PTU. I will try to get some of the records from the [place] with regards to this. His Pro-BNP is elevated and this is probably secondary to chronic kidney disease that this individual has. I did ask him about weight loss and he claimed that he had tried but had not been successful. His fasting insulin is elevated. His TSH is within normal, upper limit. OBJECTIVE: Vital Sign: 03/05/19 at 1:58 p.m. temperature 97.8 orally, pulse 59, blood pressure 121/65, respiratory rate 18, oxygen saturation 94 on room air and was 95 previously. The patient is able to go to the bathroom on his own. He weighed about the same as yesterday. [facility]
--- NOTE | 2019-03-08 11:07 | DS ---
DATE OF SERVICE: 03/06/19 FINAL DIAGNOSES: 1. Heart failure, chronic with superimposed acute with slightly reduced ejection fraction. 2. Atrial fibrillation on Pradaxa. 3. Insulin resistant syndrome markedly elevated, fasting insulin 41.3 - upper normal 24.9. 4. History of Graves' disease, treated, now hypothyroid, diagnosis questionable. 5. History of osteoarthritis. 6. History of Vitamin D deficiency on 50,000 international units of Vitamin D weekly. 7. Chronic obstructive sleep apnea. 8. History of pulmonary embolism. 9. History of hypertension. 10. History of right inguinal surgery or hernia. 11. Markedly elevated BMI, 43.9. 12. Prediabetes. BRIEF HISTORY OF PRESENT ILLNESS/HOSPITAL COURSE: 68-year-old male who was seen at the emergency room because of shortness of breath. He claims that the patient had this exertional dyspnea for more than one month however it was worse in the last two days. He was driving to [place] to come to the [facility]. He told me that from [place] he was going to [place] and I did not ask him what was the purpose. He was admitted after being seen at the emergency room with diagnosis of heart failure superimposed on chronic one. His Pro-BNP was elevated to 1,300. The D. dimer was 991 so CTA was done showing no pulmonary emboli but bilateral atelectasis, aortic aneurysm 4.3, thoracic. CT scan of the head showed no acute intracranial processes. Carotid doppler showed no significant hemodynamic problems. The MCV and MCH were elevated probably B complex deficiency. This patient had atrial fibrillation and is on Pradaxa 150 mg twice a day. OBJECTIVE: Lungs were clear to auscultation although the breath sounds had diminished probably because of size. Heart is audible and regular but not tachycardic and somewhat distant. Neck has no masses and no bruit. Bilateral leg edema on admission with discoloration secondary to chronic venous insufficiency. The anterior tibials were not palpable on admission but was able to palpate the next day after he lost 7 lbs. The patient was given Lasix 40 mg in the emergency room and was scheduled twice a day. The patient had lost 7 lbs after one day of admission into the hospital with diuretic. The patient however gained 2# the next day and remained the same until discharge. His appetite was good. He denied any dysphagia, chest pain or abdominal pain. He persists to have dizziness. His shortness of breath has decreased. The patient had echocardiogram done by Dr. Majano, Gym Supervisor, who saw him also in consult. He felt the patient's cardiovascular status was stable and the left ventricular ejection fraction is acceptable 45 to 50. I did not change the medication for this patient since his cardiac status appears to be stable. Some day this patient might need Entresto. The patient's fasting insulin was high and this patient needs to have a low carb diet and hopefully will lose some weight. I am not certain about the diagnosis. He told me had Graves' disease as well as but I did ask him about the medication and there was no mention of the medication or he could not remember whether he had received a PTU or Methimazole. He denied receiving any radiation treatment for the Grave's disease. Chest x-ray done yesterday showed minimal bilateral atelectasis. Same findings with the CT. The patient on discharge was alert, ambulatory using a walker to get to the bathroom. He had some dizziness upon standing from the sitting position in bed. He had no syncopal episode and had not had any history of such syncopal episode in the past. He had movement of all extremities. I did talk to him about discharge with the nurse present in the discussion. I did tell him that all of his medications will be continued and that his echocardiogram appears to be satisfactory but the dizziness may be coming from the ear that he needs to see a ear, nose and throat doctor. He did have some fluid in the left mastoid area on CT scan. His did drive to [place] from [place] to pick him up. She did not get out of the vehicle since she had fallen yesterday. I did go out and talk to his with the patient in the passenger side. I repeated to both of them that he needed to see his family physician some time this coming week, Friday or Friday. He is to resume all of his medications. I recounted to Ms. Oakes and Mr. Oakes the tests that we have done namely CT scan of the chest with Iodine, CT scan of the head, vascular ultrasound of the blood vessel of the neck, echocardiogram and a chest x-ray. There are no changes in the medications. I did prescribe Antivert 25 mg to be taken three times a day and not to drive if drowsy for about five days. TIME SPENT: GREATER THAN 30 MINUTES PROGNOSIS: Guarded. MTDD
--- NOTE | 2019-03-11 07:54 | CONS ---
DATE OF SERVICE: 03/04/19 CONSULT FOLLOWUP SUBJECTIVE: 68 year old white male was seen and examined today. The patient's condition is stable. He is still dizzy but he eat a lot. He eat 100% of food and more. Up and about with no vomiting. He is dizzy with the head movement more like vestibular dysfunction. REVIEW OF SYSTEMS: CONSTITUTIONAL: No night sweats. No fatigue, malaise, lethargy. No fever or chills. HEENT: Eyes: No visual changes. No eye pain. No eye discharge. ENT: No runny nose. No epistaxis. No sinus pain. No sore throat. No odynophagia. No ear pain. No congestion. RESPIRATORY: No cough, no congestion. No hemoptysis. CARDIOVASCULAR: No angina symptoms. No CHF symptoms. No atypical chest pain for CAD. No palpitations. No shortness of breath. GASTROINTESTINAL: No abdominal pain. No nausea or vomiting. No diarrhea or constipation. No hematemesis. No hematochezia. GENITOURINARY: No urgency. No frequency. No dysuria. No hematuria. No obstructive symptoms. No discharge. No pain. No significant abnormal bleeding. MUSCULOSKELETAL: No musculoskeletal pain. No joint swelling. No arthritis. NEUROLOGICAL: No headache. No neck pain. No syncope. No seizures. No dizziness. PSYCHIATRIC: Not anxious. No depression. No suicidal thoughts. No homicidal thoughts. SKIN: No rash. No lesions. No wounds. ENDOCRINE: No unexplained weight loss. No weight gain. HEMATOLOGIC/LYMPHATIC: No anemia. No purpura. No petechiae. No prolonged or excessive bleeding. No palpable lymph nodes. PHYSICAL EXAMINATION: GENERAL: The patient is oriented to time, place and person. Intelligent HEENT: Head normocephalic, atraumatic. Eyes: Extraocular muscles are intact. Pupils are equal, round and reactive to light and accommodation. Ears: No lesions. Nose appeared normal. Throat: No exudate or erythema. NECK: Supple. No JVD, no carotid bruit. No lymphadenopathy or thyromegaly. LUNGS: Clear to auscultation. Percussion note normal. Chest symmetrical. HEART: S1, S2, no S3. No murmurs. No cyanosis or clubbing. No ascites. Pulses: Dorsalis pedis and posterior tibial pulses +1 to +2 bilaterally. ABDOMEN: Soft. Nontender. Bowel sounds active. No CVA tenderness. No mass felt. EXTREMITIES: No edema. Full range of motion of all extremities, equal. NEUROLOGIC: No focal deficit. Cranial nerves II through XII are grossly intact. No headache, no double vision or headache. SKIN: Not dry. Intact. Turgor - normal. LYMPHATIC: No palpable lymph nodes/no lymphedema. MUSCULOSKELETAL: Normal joints with no swelling. Muscle tone is normal. LABS: The patient's echo was acceptable with ejection 50-55%. ASSESSMENT: 1. Dizziness likely vestibular dysfunction 2. Atrial fibrillation has controlled ventricular response. 3. Blood pressure is under control with no evidence of CHF, no evidence of coronary insufficiency CARDIOVASCULAR STATUS: Stable. RECOMMENDATIONS: 1. Kidney function has become somewhat abnormal so we will discontinue the IV Lasix and put him on Lasix 20mg PO daily. MTDD
== END 2019-03-06 17:34 | disposition home or self-care (01) ==
LOC: ED 20:49 → MEDSURG B 03-03 00:03
PROVIDERS: ADMIT General Practice; ATTEND General Practice